=== PATIENT | male | born 1970 | race Caucasian/White ===

== ENCOUNTER → 2016-08-18 | Outpatient (CLI) | payer OTHER, MEDICAID ==
[~2016-08-18] MED LIST: AZITHROMYCIN250 MG PO; BACTRIM DS 8001 TA1 PO; BACTRIM DS 8001 TAB PO; BENADRYL25 M1 PO; CIPRO 500MG TA500 MG PO; CLINDAMYCIN HC300 MG PO; CYCLOBENZ5 MG PO; ELIMITE 5%60 GM/TUBE EX; FLEXERIL10 MG PO; FLEXERIL5 MG PO; GABAPENTIN300 MG PO; HYDROCODONE1 TABLET PO; KEFLEX 500MG.500 MG PO; LORTAB 5/500 501 TAB PO; MEDROL 4MG. DOSE4 MG PO; MELOXICAM15 MG PO; MOBIC15 MG PO; NICOTINE PATCH;21 MG TD; NOMEDS *; NOMEDS XX; OXYCODONE 5MG TA5 MG PO; OXYCODONE CR10 MG PO; PERCOCET 325 MG1 TA3 PO; PERCOCET 5/3251 EACH PO; PHENERGAN 25MG.25 M1 PO; PREDNISONE 10MG10 MG PO; PREDNISONE 20MG20 MG PO; PYRIDIUM 200MG200 MG PO; SEROQUEL 25MG T25 MG PO; SKELAXIN800 MG PO; SULFAMETHOXAZOL1 TA6 PO; TRAMADOL 50MG T50 MG PO; Tramadol HCl50 MG PO; ULTRAM 50 MG TA50 MG PO; ULTRAM50 MG PO; VALIUM 10MG TAB10 MG PO; VIBRAMYCIN 100100 MG PO; VICODIN 5/500 T1 TAB PO; VICODIN 7.5/501 EACH PO; VISTARIL25 M1 PO; VISTARIL50 MG PO; VITAMIN D31000 IU PO; VOLTAREN75 MG PO; ZITHROMAX Z PA250 MG PO; ZYRTEC10 MG PO
[2016-08-18 17:22] LABS: BUN 20 mg/dL (7-18)
[2016-08-18 17:24] LABS: GFR (ESTIMATED) 90 ML/MIN (>60)
== END ==
LOC: LAB 16:51
PROVIDERS: Physician Assistant
DX: B19.10 Unspecified viral hepatitis B without hepatic coma (principal)